=== PATIENT | female | born 1985 | race Caucasian/White ===

== ENCOUNTER 2019-01-08 12:29 | Day surgery (SDC) | payer OTHER ==
[2019-01-04 12:33] VITALS: BMI 47.0
[~2019-01-08 12:29] MED LIST: LACTATED RINGERS 1,000 ML IV SCH; LIDOCAINE 1% 20 ML VIAL (10MG/ML) FOR IV START INTRADERMA PRN
[2019-01-08 12:55] VITALS: TEMP 98.1
[2019-01-08] MEDS ORDERED: LIDOCAINE 1% INJ 10MG/ML (20 ML MDV) ONE (12:55)
[2019-01-08] MEDS ORDERED: PROPOFOL 10 MG/ML 20 ML VIAL IV ONE (12:55)
[2019-01-08] MEDS ORDERED: ONDANSETRON 4 MG/2 ML VIAL IVP ONE (12:56)
[2019-01-08 13:36] VITALS: BP 129/79; PULSE 59; RESP 17
--- NOTE | 2019-01-16 10:03 | P.PCN ---
Date of Procedure: 01/08/19 Preoperative Diagnosis: Diarrhea, rectal bleeding, change in bowel habits Postoperative Diagnosis: Diarrhea, rectal bleeding, change in bowel habits Procedure(s) Performed: Colonoscopy with biopsy Anesthesia: MAC Surgeon: Kathy Woods Pathology: other (Terminal ileum and random colonic mucosal biopsies) Condition: stable Disposition: PACU Indications for Procedure: Patient presented with change in bowel habits diarrhea and rectal bleeding. Prior workup was unremarkable Description of Procedure: The patient is taken to the endoscopy suite where colonoscope is passed per rectum to the terminal ileum. She had excellent prep. The mucosa of the terminal ileum appeared normal. Some biopsies were obtained. The colon itself was without evidence of polyp, mass lesion, ulcer, diverticuli or mucosal abnormality. Random colonic biopsies were obtained in the microscopic colitis. Small internal hemorrhoids retroflexion of the scope. She tolerated the procedure without difficulty and was taken recovery room in satisfactory condition. Call with the report of the biopsies and had further recommendations to follow. Plan - Discharge Summary Discharge Rx Participant: No New Discharge Prescriptions: No Action Etonogestrel/Ethinyl Estradiol [Nuvaring Vaginal Ring] 1 each VG DIRECTED Ibuprofen [Motrin Ib] 200 - 800 mg PO Q6H PRN PRN Reason: Pain Discharge Medication List Etonogestrel/Ethinyl Estradiol [Nuvaring Vaginal Ring] 1 each VG DIRECTED 01/04/19 [History] Ibuprofen [Motrin Ib] 200 - 800 mg PO Q6H PRN 01/04/19 [History] Follow up Appointment(s)/Referral(s): Kathy Woods DO [Doctor of Osteopathic Medicine] - As Needed Patient Instructions/Handouts: *Sur[facility] - (Anesthesia) Endoscopy Discharge Instructions, Colonoscopy (DC) Discharge Disposition: HOME SELF-CARE
== END 2019-01-08 13:53 | disposition home or self-care (01) ==
LOC: ORWHC2ENDO 12:29
PROVIDERS: ATTEND Surgery
DX: K52.9 Noninfective gastroenteritis and colitis, unspecified (principal); Z80.0 Family history of malignant neoplasm of digestive organs; Z87.891 Personal history of nicotine dependence; Z79.1 Long term (current) use of non-steroidal anti-inflammatories (NSAID); Z79.3 Long term (current) use of hormonal contraceptives; Z88.5 Allergy status to narcotic agent
CPT/HCPCS: 81025; 88305; 45380; J2405; J2001; J2704